=== PATIENT | female | born 1965 | race Caucasian/White ===

== ENCOUNTER 2017-10-15 04:44 | Emergency (ER) | payer MEDICAID, SELFPAY ==
[2017-10-15 04:50] VITALS: BP 122/80; PULSE 91; RESP 12; TEMP 36.6; O2SAT 97; BMI 19.8
--- NOTE | 2017-10-15 05:14 | HMH.EDWNDL ---
ED Disposition Clinical Impression: Laceration Disposition: Home, Self-Care Condition on Discharge: Good Instructions: DI for Laceration Repair Additional Instructions: suture out 10 days Referrals: Ang Brower MD [Primary Care Provider] - - Critical Care Critical Care Time: No Attestation: On 10/15/17, the high probability of a clinically significant, sudden or life threatening deterioration of the following system(s) required my full and direct attention, intervention and personal management. The time I documented below is in addition to time spent performing reported procedures but includes the following listed in this critical care notation. Medical Decision Making - Medical Records Medical records reviewed: Yes: I reviewed the patient's medical records. Vital Signs: 10/15/17 04:50 Temperature 97.9 F Temperature Source Oral Pulse Rate [Right Radial] 91 H Respiratory Rate 12 Blood Pressure [Right Arm] 122/80 Blood Pressure Mean [Right Arm] 94 Blood Pressure Source [Right Arm] Automatic Cuff Blood Pressure Position [Right Arm] Sitting 02 Sat by Pulse Oximetry 97 Oxygen Delivery Method Room Air - Jakub Inquiry Pt receiving controlled substance: No Wound/Laceration HPI - General Chief Complaint: Wound/Laceration Stated Complaint: AO 10/15/17 04:10 laceration to left hand Time Seen by Provider: 10/15/17 05:14 Mode of Arrival: Ambulatory Source of Information: Patient, Spouse, Medical Record Limitations: No Limitations Description of Symptoms (Recalled from ER Triage Doc. by RN): left hand laceration - History of Present Illness HPI narrative: lac lt hand at home with boxcutter Onset (ago): hour(s) Extremity Location: Left: hand Place: home Patient tetanus UTD: Yes Context: accidental Associated symptoms: none - Related Data Home Medications Medication Instructions Recorded Confirmed ALPRAZolam [Alprazolam 0.25mg 0.25 mg PO TID 10/15/17 10/15/17 Tab] Aspirin [Aspirin 81mg chewable 81 mg PO DAILY 10/15/17 10/15/17 tab] Atorvastatin Calcium [Atorvastatin 40 mg PO HS 10/15/17 10/15/17 40mg Tab] Budesonide/Formoterol Fumarate 1 inh INHALATION BID 10/15/17 10/15/17 [Symbicort 160-4.5 Mcg Inhaler] Clopidogrel Bisulfate [Plavix 75mg 1 tab PO DAILY 10/15/17 10/15/17 Tab] Meloxicam [Mobic 7.5mg Tab] 7.5 mg PO BID 10/15/17 10/15/17 Metoprolol Succinate [Toprol XL 25 mg PO DAILY 10/15/17 10/15/17 25mg tablet] Nitroglycerin [Nitroglycerin 4.9 gm TL Q5MINP PRN 10/15/17 10/15/17 0.4mg/Dose [place] 4.9gm] Allergies Allergy/AdvReac Type Severity Reaction Status Date / Time No Known Allergies Allergy Verified 10/15/17 04:59 [facility] History I have reviewed the patient's past medical history: Yes Medical History: Denies:: Cancer, Diabetes Mellitus Type 1, Diabetes Mellitus Type 2, MRSA Amputation: No Fractures: No - *Social History Educational Level: Completed GED/General Educational Development Smoking Status: Current every day smoker # Packs/Day (cigarettes): 1 Alcohol Intake: never - Psychiatric History Expresses thoughts of harming self/others: None Suicide Plan Description: No Plan ROS Obtained: Yes All systems reviewed & no additional complaints - Constitutional Constitutional: Denies fever(s) - Eyes Eyes: Denies change in vision - ENT Ears, Nose, Mouth, and Throat: Denies sore throat - Cardiovascular Cardiovascular: Denies chest pain at rest - Respiratory Respiratory: No chest congestion - Gastrointestinal Gastrointestingal: Denies: nausea - Musculoskeletal Musculoskeletal: Denies joint pain, Denies joint stiffness - Integumentary/Breasts Skin/Breast: Reports as per HPI - Neurologic Neurologic: Denies seizure-like activity Physical Exam - General General appearance: alert, in no apparent distress - Head Head exam: atraumatic - Eye Eye exam: Present: PERRL, EOMI - ENT ENT exam: Pres
[2017-10-15 05:46] VITALS: BP 138/64; PULSE 78; RESP 16; TEMP 36.9; O2SAT 98
== END 2017-10-15 05:46 | disposition home or self-care (01) ==
PROVIDERS: Emergency Provider Emergency Medicine; Family Provider Family Medicine; PCP Family Medicine
DX: S61.412A Laceration without foreign body of left hand, initial encounter (principal); W26.0XXA Contact with knife, initial encounter; Y92.019 Unspecified place in single-family (private) house as the place of occurrence of the external cause; Z79.899 Other long term (current) drug therapy; I10 Essential (primary) hypertension; Z79.82 Long term (current) use of aspirin; F17.210 Nicotine dependence, cigarettes, uncomplicated; I25.10 Atherosclerotic heart disease of native coronary artery without angina pectoris
CPT/HCPCS: 12001; 99282

== ENCOUNTER → 2019-06-17 09:59 | Outpatient (CLI) | payer MEDICAID, SELFPAY ==
--- NOTE | 2019-06-17 10:04 | US_ITS ---
PROCEDURE: US ABDOMEN LIMITED CLINICAL INDICATION: RUQ PAIN Right upper quadrant pain with nausea miles in the COMPARISON: CT ABDOMEN PELVIS WO CON from 06/13/2019 FINDINGS: PANCREAS: Unremarkable. No obvious mass or abnormal fluid collection. No ductal dilatation LIVER: No focal liver lesions demonstrated. Homogeneous echogenicity. No intrahepatic biliary ductal dilatation evident. There is appropriate direction of blood flow within a non dilated portal vein RIGHT KIDNEY: Unremarkable. Normal size and echogenicity. No hydronephrosis GALLBLADDER: Gallbladder is slightly distended measuring 9.7 by 2.7 cm. The wall is mildly thickened measuring up to 4 mm. No pericholecystic fluid is evident. No shadowing stones are apparent. There is a small echogenic focus along the anterior aspect of the gallbladder with comet tail artifact consistent with cholesterolosis. IMPRESSION: Mildly distended gallbladder with mild thickening of the gallbladder wall with cholesterolosis. No shadowing stones or pericholecystic fluid or biliary dilatation. Dictated by: Rod Garcia MD 06/17/2019 16:00 Electronically signed by Rod Garcia MD in [place] 06/17/2019 16:00
== END ==
PROVIDERS: PCP Family Medicine; Visit Provider Family Medicine
DX: R10.11 Right upper quadrant pain (principal)
CPT/HCPCS: 76705

== ENCOUNTER → 2019-07-12 11:33 | Outpatient (CLI) | payer OTHER, SELFPAY ==
--- NOTE | 2019-07-12 11:50 | ECG_ITS ---
APPROVED REPORT Exam: Resting ECG HR:72 bpm ECG Measurements Heart Rate 72 AXES NM 176 P 72 QRSd 68 QRS 72 QT 398 T 72 QTc 435 <Conclusion> Normal sinus rhythm Possible Left atrial enlargement Incomplete RBBB Borderline ECG Electronically signed by : Glen Gunter, 07/12/2019 17:14:01
--- NOTE | 2019-07-12 11:51 | XR_ITS ---
PROCEDURE: XR CHEST 2V CLINICAL HISTORY: gallstones COPD, smoker, history collapse lung COMPARISON: CXR CHEST(2 VIEWS-NOT PORTABLE) from 05/27/[address] [facility] [address] CHEST W/O CONTRAST from 05/27/2017 XR CHEST 2V from 06/13/2019 FINDINGS: The cardiomediastinal silhouette and pulmonary vascularity are within normal limits. Hyperinflation with attenuation of the peripheral pulmonary vessels consistent with COPD with biapical fibrotic change. Calcified granuloma is present in the lingula. No lobar consolidation or collapse. No acute bony findings. No acute bony abnormalities. IMPRESSION: COPD with chronic changes Dictated by: Rod Garcia MD 07/12/2019 13:07 Electronically signed by Rod Garcia MD in [place] 07/12/2019 13:07
[2019-07-12 12:03] LABS: Basophils % 0.6 % (0.1-2.0); Eosinophils # 0.2 K/mm3 (0.0-0.4); Eosinophils % 2.7 % (0.1-12.0); Hematocrit 45.3 % (37.0-47.0); Hemoglobin 13.4 g/dL (12.2-16.2); Lymphocytes # 2.2 K/mm3 (0.7-4.5); Lymphocytes % 34.7 % (10-50); Mean Corpuscular HGB Conc 29.6 g/dL (31.8-35.4); Mean Corpuscular Hemoglobin 28.8 pg (27.0-31.2); Mean Corpuscular Volume 97.2 fl (81-99); Mean Platelet Volume 7.8 fl (7.4-10.4); Monocytes # 0.4 K/mm3 (0.1-1.0); Monocytes % 6.9 % (1.7-9.3); Neutrophils # 3.5 K/mm3 (1.8-7.8); Neutrophils % 55.1 % (37.0-80.0); Platelet Count 320 K/mm3 (142-424); Red Blood Count 4.66 M/mm3 (4.20-5.40); White Blood Count 6.3 K/mm3 (4.8-10.8)
[2019-07-12 13:42] LABS: Alanine Aminotransferase 15 U/L (12-78); Albumin Level 3.9 gm/dL (3.4-5.0); Albumin/Globulin Ratio 1.2 (1.1-1.8); Alkaline Phosphatase 120 U/L (46-116); Anion Gap 13.6 mEq/L (5-15); Aspartate Amino Transferase 14 U/L (15-37); Bilirubin,Total 0.3 mg/dL (0.2-1.0); Blood Urea Nitrogen 13 mg/dL (7-18); Calcium 9.3 mg/dL (8.5-10.1); Carbon Dioxide 29 mmol/L (21.0-32.0); Chloride 102 mmol/L (98-107); Estimated Glomerular Filt Rate 74 ml/min (>60); GFR (African American) 90 ML/MIN (>60); Globulin 3.2 gm/dl (1.3-3.2); Glucose 83 mg/dL (74-106); Potassium 4.6 mmoL/L (3.5-5.1); Sodium 140 mmol/L (136-145); Total Protein,Serum 7.1 gm/dL (6.4-8.2)
== END ==
PROVIDERS: Visit Provider Surgery
DX: K82.9 Disease of gallbladder, unspecified (principal); Z12.11 Encounter for screening for malignant neoplasm of colon
CPT/HCPCS: 36415; 71046; 80053; 85025; 93005

== ENCOUNTER → 2019-08-06 11:10 | Outpatient (CLI) | payer OTHER, SELFPAY ==
--- NOTE | 2019-08-06 11:28 | CT_ITS ---
PROCEDURE: CT ABDOMEN PELVIS W CON CLINICAL INDICATION: post surgical abdominal pain Mid epigastric pain, recent gallbladder surgery COMPARISON: CT ABDOMEN PELVIS WO CON from 06/13/2019 US ABDOMEN LIMITED from 06/17/2019 TECHNIQUE: IV Contrast: 75ML OPTIRAY 350 Oral Contrast 20ml Gastroview Axial images obtained with sagittal and coronal reformats. All CT scans at the facility use one or more dose reduction, viz: automated exposure control, ma/kV adjustment per patient size (including targeted exams where dose is matched to indication, i.e. head), or iterative reconstruction technique. FINDINGS: LOWER THORAX: No change in the bilateral lower lobe small pulmonary nodules. There are mild atelectatic changes in the lung bases. There is minimal thickening of the pericardium anteriorly There are post cholecystectomy changes. The there is mild prominence of the common bile duct and the pancreatic duct with the common bile duct measuring approximately 8 mm in diameter. The pancreatic duct measures up to 4 mm. No obvious calcified common duct stone. There is a prominent duodenal diverticulum along the medial aspect of the descending duodenum. No evidence of pancreatitis. There is mild ectasia of the right renal collecting system. The left kidney has an unremarkable appearance. There is a mild amount of retained colonic feces. No intestinal obstruction or free air. No evidence of appendicitis there is mild distention of the urinary bladder. Uterus once again is noted to have a lobular contour and may be due to fibroid involvement. Increased density is present in the umbilical region and may be due to postsurgical changes. IMPRESSION: 1. Status post cholecystectomy. There is mild prominence of the biliary tree not significantly changed. There is minimal prominence of the pancreatic duct which is probably not significantly changed. No evidence of abscess or biloma. 2. There is a mild amount of retained colonic feces. 3. Duodenal diverticulum. 4. Probable fibroid involvement of the uterus Dictated by: Rod Garcia MD 08/06/2019 14:57 Electronically signed by Rod Garcia MD in [place] 08/06/2019 14:57
[2019-08-06 11:29] LABS: Basophils # 0.1 K/mm3 (0-0.2); Basophils % 0.5 % (0.1-2.0); Eosinophils # 0.3 K/mm3 (0.0-0.4); Eosinophils % 2.7 % (0.1-12.0); Hematocrit 44.2 % (37.0-47.0); Hemoglobin 14.3 g/dL (12.2-16.2); Lymphocytes # 2.4 K/mm3 (0.7-4.5); Lymphocytes % 24.9 % (10-50); Mean Corpuscular HGB Conc 32.4 g/dL (31.8-35.4); Mean Corpuscular Hemoglobin 30.9 pg (27.0-31.2); Mean Corpuscular Volume 95.3 fl (81-99); Mean Platelet Volume 7.3 fl (7.4-10.4); Monocytes # 0.3 K/mm3 (0.1-1.0); Monocytes % 3.1 % (1.7-9.3); Neutrophils # 6.7 K/mm3 (1.8-7.8); Platelet Count 288 K/mm3 (142-424); Red Blood Count 4.64 M/mm3 (4.20-5.40); Red Cell Distribution Width 13.2 % (11.5-17.5); White Blood Count 9.7 K/mm3 (4.8-10.8)
[2019-08-06 11:42] LABS: Amylase 53 U/L (25-115); Anion Gap 7.1 mEq/L (5-15); Blood Urea Nitrogen 16 mg/dL (7-18); Calcium 8.9 mg/dL (8.5-10.1); Carbon Dioxide 33 mmol/L (21.0-32.0); Chloride 106 mmol/L (98-107); Estimated Glomerular Filt Rate 74 ml/min (>60); GFR (African American) 90 ML/MIN (>60); Glucose 86 mg/dL (74-106); Lipase 176 u/L (73-393); Potassium 4.1 mmoL/L (3.5-5.1); Sodium 142 mmol/L (136-145)
== END ==
PROVIDERS: Visit Provider Surgery
DX: K81.9 Cholecystitis, unspecified (principal); K85.90 Acute pancreatitis without necrosis or infection, unspecified; G89.18 Other acute postprocedural pain
CPT/HCPCS: 36415; 74177; 80048; 82150; 83690; 85025; Q9967

== ENCOUNTER 2019-11-26 06:16 | Inpatient (IN) ==
--- NOTE | 2019-11-26 06:31 | Emergency Department Note ---
ED Disposition Clinical Impression: Colitis, VARINDER (acute kidney injury), SIRS (systemic inflammatory response syndrome) Disposition: Admitted as Observation Condition on Discharge: Good Instructions: DI for Diarrhea and Traveler's Diarrhea -- Adult, DI for Diarrhea and Traveler's Diarrhea -- Child, DI for Nausea -- Adult, DI for Nausea -- Child Referrals: Provider,Referral, [Referring] - - Critical Care Critical Care Time: No Attestation: On 11/26/19, the high probability of a clinically significant, sudden or life threatening deterioration of the following system(s) required my full and direct attention, intervention and personal management. The time I documented below is in addition to time spent performing reported procedures but includes the following listed in this critical care notation. Medical Decision Making - Medical Records Medical records reviewed: Yes: I reviewed the patient's medical records. - Jakub Inquiry Pt receiving controlled substance: No Vital Signs: 11/26/19 06:14 11/26/19 08:50 Temperature 98.0 F Temperature Source Oral Pulse Rate [Left Radial] 90 101 H Respiratory Rate 16 Blood Pressure [Right Arm] 144/78 H 124/67 Blood Pressure Mean [Right Arm] 100 86 Blood Pressure Source [Right Arm] Automatic Cuff Blood Pressure Position [Right Arm] Sitting 02 Sat by Pulse Oximetry 97 94 L Oxygen Delivery Method Room Air - Lab Data Lab results reviewed: Yes: I reviewed the patient's lab results. Lab Results 11/26/19 06:20: WBC 18.6 H, RBC 5.04, Hgb 15.1, Hct 47.6 H, MCV 94.4, MCH 29.9, MCHC 31.7 L, RDW 13.4, Plt Count 335, MPV 7.6, Neut % (Auto) 86.1 H, Lymph % (Auto) 8.3 L, [place] % (Auto) 5.1, Eos % (Auto) 0.3, Baso % (Auto) 0.2, Neut # (Auto) 16.0 H, Lymph # (Auto) 1.5, [place] # (Auto) 1.0, Eos # (Auto) 0.1, Baso # (Auto) 0.0, Total Counted 100, Neutrophils % (Manual) 88 H, Lymphocytes % (Manual) 6 L, Monocytes % (Manual) 6, Platelet Estimate Slight increase, RBC Morphology Normal 11/26/19 06:20: Sodium 140, Potassium 4.2, Chloride 104, Carbon Dioxide 29, Anion Gap 11.2, BUN 25 H, Creatinine 1.20 H, Estimated Creat Clear 45, Estimated GFR 46 L, Est GFR ( Amer) 56 L, Glucose 153 H, Calcium 10.5 H, Lipase 64, Acetone Level None detected 11/26/19 06:20: Lactate 1.5 11/26/19 06:20: Influenza Type A Ag Negative, Influenza Type B Ag Negative 11/26/19 06:20: Total Bilirubin 0.5, Direct Bilirubin 0.0, Conjugated Bilirubin 0.0, Indirect Bilirubin 0.5, Unconjugated Bilirubin 0.6, AST 32, ALT 20, Alkaline Phosphatase 121, Total Protein 7.4, Albumin 4.3 11/26/19 06:28: Urine Color Yellow, Urine Appearance Clear, Urine pH 6.5, Ur Specific [place] 1.015, Urine Protein Trace, Urine Glucose (UA) Negative, Urine Ketones Negative, Urine Blood Trace-i, Urine Nitrate Negative, Urine Bilirubin Negative, Urine Urobilinogen 0.2, Ur Leukocyte Esterase Negative, Urine RBC Occasional, Urine WBC Occasional, Ur Squamous Epith Cells Occasional, Urine Bacteria Trace Result diagrams: 11/26/19 06:20 11/26/19 06:20 Orders (Tests/Meds): ED MEDICATIONS Generic Name Dose Route Start Last Admin Trade Name Freq PRN Reason Stop Dose Admin Levofloxacin/Dextrose 750 mg in 150 mls @ 100 mls/hr 11/26/19 09:00 Levofloxacin 750mg/150ml Premix IV 12/10/19 08:59 Q24H MARITA Protocol Metronidazole 500 mg in 100 mls @ 100 mls/hr 11/26/19 09:00 Flagyl 500mg/100ml Ivpb IV 12/10/19 08:59 Q6H MARITA Protocol Discontinued Medications Generic Name Dose Route Start Last Admin Trade Name Freq PRN Reason Stop Dose Admin Sodium Chloride 1,000 mls @ 999 mls/hr 11/26/19 06:30 11/26/19 06:31 Sod Chlor 0.9% 1000ml Bag IV 11/26/19 07:30 999 mls/hr .Q1H1M MARITA Administration Ioversol 75 ml 11/26/19 07:46 11/26/19 07:47 Rad-Optiray 350 100ml Vial IV 11/26/19 07:47 75 ml ONCE ONE Administration Protocol Morphine Sulfate 2 mg 11/26/19 08:55 Morphine 2mg/Ml Syringe IV 11/26/19 08:56 ONCE ONE Ondansetron HCl 4 mg 11/26/19 06:23 11/26/19 06:31 Zofran 4mg/2ml Vial IV 11/26/19 06:24 4 mg ONCE ONE Administration Sodium Chloride 10 ml 11/26/19 07:46 11/26/19 07:47 Rad-Saline Flush 10ml Syringe IV 11/26/19 07:47 10 ml ONCE ONE Administration ORDERS Category Date Time Status CT abdomen pelvis w con Stat Cat Scan 11/26/19 06:21 Taken Diarrhea 6-11 Panel, Cdiff PCR Stat Lab 11/26/19 07:54 Received Blood Culture Stat Micro 11/26/19 06:20 Received - CT Data CT Scan: Abdomen, Pelvis Time Received: 08:[address] Reviewed: Yes: I have viewed the radiologist's interpretation Preliminary Findings: Abnormal (colitis) - Physician Consults Physician Consulted: percy Reason -: Admission Nausea/Vomiting/Diarrhea HPI - General Chief complaint: Nausea/Vomiting/Diarrhea Stated complaint: nausea, vomiting, diarrhea Time Seen by Provider: 11/26/19 06:30 Mode of Arrival: EMS Source of Information: Patient, EMS, Medical Record Limitations: No Limitations Description of Symptoms (Recalled from ER Triage Doc. by RN): pt stated she had been experiencing abdominal cramping along with nausea, vomiting and diarrhea since 10pm last night. - History of Present Illness HPI Narrative: pt reports onset od lower abd pain with assoc diarrhea and some blood in stool - nausea and no vomiting - MD complaint: nausea, vomiting, diarrhea, abdominal pain Onset (ago): hour(s) Associated Abdominal Pain: Yes Location of pain: diffuse Severity: moderate Associated symptoms: denies other symptoms - Related Data Home Medications Medication Instructions Recorded Confirmed ALPRAZolam [Alprazolam 0.25mg 0.25 mg PO TID 10/15/17 11/26/19 Tab] Aspirin [Aspirin 81mg chewable 81 mg PO DAILY 10/15/17 11/26/19 tab] Atorvastatin Calcium [Atorvastatin 40 mg PO HS 10/15/17 11/26/19 40mg Tab] Budesonide/Formoterol Fumarate 1 inh INHALATION BID 10/15/17 11/26/19 [Symbicort 160-4.5 Mcg Inhaler] Clopidogrel Bisulfate [Plavix 75mg 1 tab PO DAILY 10/15/17 11/26/19 Tab] Meloxicam [Mobic 7.5mg Tab] 7.5 mg PO BID 10/15/17 11/26/19 Metoprolol Succinate [Toprol XL 25 mg PO DAILY 10/15/17 11/26/19 25mg tablet] Nitroglycerin [Nitroglycerin 4.9 gm TRANSLINGUAL Q5MINP PRN 10/15/17 11/26/19 0.4mg/Dose [place] 4.9gm] Amitriptyline HCl [Elavil 25mg 25 mg PO DAILY 07/14/19 11/26/19 tablet] Allergies Allergy/AdvReac Type Severity Reaction Status Date / Time No Known Allergies Allergy Verified 09/03/19 10:00 [facility] History - Hepatitis A Screen Drug use history?: No High risk sexual behaviors?: No History of sexually transmitted infection?: No Currently employed?: No Childcare worker?: No Do you have indoor plumbing?: Yes Do you have electricity?: Yes Attestation statement:: This patient has been screened for Hepatitis A risk factors. I have reviewed the patient's past medical history: Yes Medical History: Reports:: Anxiety, Hyperlipidemia, Hypertension Denies:: Cancer, Diabetes Mellitus Type 1, Diabetes Mellitus Type 2, Internal Pacemaker, MRSA, Seizures Other Medical History: Denies: Blood Transfusion Reaction Other Surgeries: Yes: Cholecystectomy, Colonoscopy, Other. No: Pacemaker Amputation: No Fractures: No Comment: pneumothorax - Social History Smoking Status: Current every day smoker Tobacco Type: cigarettes # Packs/Day (cigarettes): 1 Alcohol Intake: never Substance Use Type: denies use Occupational Status: disabled Housing: house Household Members: spouse - Psychiatric History Pschychiatric History:: Reports:: Anxiety Family Hx:: No significant family history ROS Obtained: Yes All systems reviewed & no additional complaints - Constitutional Constitutional: Denies fever(s) - Eyes Eyes: Denies change in vision - ENT Ears, Nose, Mouth, and Throat: Denies sore throat - Cardiovascular Cardiovascular: Denies chest pain, Denies dyspnea - Respiratory Respiratory: No cough - Gastrointestinal Gastrointestingal: Reports: as per HPI, abdominal pain, diarrhea, bright red blood in stools, nausea, vomiting - Genitourinary Male Genitourinary: Reports hematuria Female Genitourinary: Denies hematuria - Musculoskeletal Musculoskeletal: Denies joint pain - Integumentary/Breasts Skin/Breast: Denies rash - Neurologic Neurologic: Denies seizure-like activity Physical Exam - General General appearance: alert - Head Head exam: normocephalic - Eye Eye exam: Present: PERRL, EOMI. Absent: scleral icterus - ENT ENT exam: Present: mucous membranes dry - Neck Neck exam: Present: trachea midline - Respiratory Respiratory exam: Present: normal lung sounds bilaterally. Absent: respiratory distress - Cardiovascular Cardiovascular exam: Present: regular rate - Abdominal Exam Abdominal exam: Present: soft, tenderness. Absent: guarding - Extremities Exam Extremities exam: Present: full ROM - Neurological Exam Neurological exam: Present: alert, oriented X3, CN II-XII intact - Psychiatric Psychiatric exam: Present: normal affect - Skin Skin exam: Absent: rash
[2019-11-26 06:39] LABS: Basophils % 0.2 % (0.1-2.0); Eosinophils # 0.1 K/mm3 (0.0-0.4); Eosinophils % 0.3 % (0.1-12.0); Hematocrit 47.6 % (37.0-47.0); Hemoglobin 15.1 g/dL (12.2-16.2); Lymphocytes # 1.5 K/mm3 (0.7-4.5); Lymphocytes % 8.3 % (10-50); Mean Corpuscular HGB Conc 31.7 g/dL (31.8-35.4); Mean Corpuscular Volume 94.4 fl (81-99); Mean Platelet Volume 7.6 fl (7.4-10.4); Monocytes % 5.1 % (1.7-9.3); Neutrophils % 86.1 % (37.0-80.0); Platelet Count 335 K/mm3 (142-424); Red Blood Count 5.04 M/mm3 (4.20-5.40); Red Cell Distribution Width 13.4 % (11.5-17.5); White Blood Count 18.6 K/mm3 (4.8-10.8)
[2019-11-26 06:48] LABS: Chloride 104 mmol/L (98-107)
[2019-11-26 06:49] LABS: Sodium 140 mmol/L (136-145)
[2019-11-26 06:51] LABS: Blood Urea Nitrogen 25 mg/dl (7-17)
[2019-11-26 06:52] LABS: Anion Gap 11.2 mEq/L (5-15); Calcium 10.5 mg/dl (8.4-10.2); Carbon Dioxide 29 mmol/L (22.0-30.0); Glucose 153 mg/dl (74-100)
[2019-11-26 06:53] LABS: Microscopic, Urine URINE MICROSCOPIC (MICROSCOPIC)
[2019-11-26 06:59] LABS: Appearance,Urine CLEAR (Clear); Bilirubin,Urine Negative (Negative); Blood, Urine TRACE-I (Negative); Color,Urine YELLOW (Yellow); Glucose,Urine (UA) Negative (Negative); Ketones,Urine Negative (Negative); Leukocyte Esterase,Urine Negative (Negative); PH,Urine 6.5 (5.0-8.5); Protein,Urine TRACE (Negative); Specific Gravity, Urine 1.015 (1.005-1.030); Urobilinogen,Urine 0.2 EU/dl (0.2)
[2019-11-26 07:07] LABS: Lymphocytes % 6 % (10-50); Monocytes % 6 % (2-9); Neutrophils % 88 % (42-76); Total Cells Counted 100
[2019-11-26 07:08] LABS: RBC Morphology Normal
[2019-11-26 07:16] LABS: Bacteria,Urine Trace /lpf; RBC,Urine Occasional #/hpf (0-3); Squamous Epithelial Cell,Urine Occasional #/hpf (0-5); WBC,Urine Occasional #/hpf (0-3)
[2019-11-26 07:20] LABS: Acetone, Serum (Rapid) None Detected (None Detect); Bilirubin,Indirect 0.5 mg/dL (0.0-0.9); Bilirubin,Total 0.5 mg/dl (0.2-1.3); Bilirubin,Unconjugated 0.6 mg/dL (0.0-1.1)
[2019-11-26 07:21] LABS: Albumin Level 4.3 g/dl (3.5-5.0); Total Protein,Serum 7.4 g/dl (6.3-8.2)
--- NOTE | 2019-11-26 09:00 | Pharmacy Consult Notes ---
[facility] Pharmacy VTE Monitoring - Patient Demographics Admission date: 11/26/19 Report Date: 11/26/19 Time: 09:00 Allergies/Adverse Reactions: Patient Allergies No Known Allergies Allergy (Verified 09/03/19 10:00) Height: 1.73 m Weight: 54.431 kg Patient Problems: Current Active Problems Colitis (Acute) VARINDER (acute kidney injury) (Acute) SIRS (systemic inflammatory response syndrome) (Acute) - VTE Risk Labs: VTE Related Lab Results Hgb 15.1 g/dL (12.2-16.2) 11/26/19 06:20 Hct 47.6 % (37.0-47.0) H 11/26/19 06:20 Plt Count 335 K/mm3 (142-424) 11/26/19 06:20 BUN 25 mg/dl (7-17) H 11/26/19 06:20 Creatinine 1.20 mg/dl (0.52-1.04) H 11/26/19 06:20 Estimated Creat Clear 45 mL/min (50-200) 11/26/19 06:20 - Prophylaxis VTE Prophylaxis Ordered?: Yes Types of VTE Prophylaxis: TEDS Knee High Location of Applied Device: Bilateral Lower Extremeties - VTE Diagnosis Confirmed Treatment or plan recommended: Continue Current Treatment
--- NOTE | 2019-11-26 16:24 | History & Physical Report ---
*Admission Date: 11/26/19 <Romy Huffman 11/26/19 16:31> *Chief complaint: vomiting/diarrhea <Romy Huffman 11/26/19 16:31> *History of present illness: Ms. Kirkland is a 54-year-old female with a history of asthma, COPD, hyperlipidemia, and arthritis who began having abdominal c ramping in the lower abdomen, diarrhea, and vomiting last night around 10 PM. She states this continued all throughout the night and around 4 AM, she began noticing blood in her stool. She presented to the emergency room for further evaluation and treatment. A diarrhea panel was done and was negative, but her CT showed colitis and her white blood cell count was elevated. She was admitted and started on IV antibiotics. She states she has had no vomiting or diarrhea since she arrived on the second floor. She continues with abdominal cramping. <Romy Huffman 11/26/19 16:31> [facility] History I have reviewed the patient's past medical history: Yes <Romy Huffman 11/26/19 16:31> Medical History: Reports:: Anxiety, Arrhythmia, Asthma, Chronic Obstructive Pulmonary Disease (COPD), Coronary Artery Disease, Hyperlipidemia, Hypertension Denies:: Cancer, Diabetes Mellitus Type 1, Diabetes Mellitus Type 2, Internal Pacemaker, MRSA, Seizures <Romy Huffman 11/26/19 16:31> *Have you ever received a pneumonia vaccine?: No <Romy Huffman 11/26/19 16:31> *Have you received a flu vaccine this season?: No <Romy Huffman 11/26/19 16:31> Other Medical History: Reports: Arthritis, Cataracts. Denies: Blood Transfusion Reaction <Romy Huffman 11/26/19 16:31> Other Surgeries: Yes: Cardiac Catheterization, Cholecystectomy, Colonoscopy, Other (angiogram). No: Pacemaker <Romy Huffman 11/26/19 16:31> Amputation: No <Romy Huffman 11/26/19 16:31> Fractures: No <Romy Huffman 11/26/19 16:31> - *Social History Educational Level: Completed GED/General Educational Development <Romy Huffman 11/26/19 16:31> Smoking Status: Current every day smoker <Romy Huffman 11/26/19 16:31> Tobacco Type: cigarettes <ArmidaRomy 11/26/19 16:31> # Packs/Day (cigarettes): 1 <ArmidaRomy 11/26/19 16:31> Alcohol Intake: never <ArmidaRomy 11/26/19 16:31> Substance Use Type: denies use <ArmidaRomy 11/26/19 16:31> *Occupational Status:: employed <Romy Huffman 11/26/19 16:31> Housing: house <KaianaliRomy 11/26/19 16:31> Household Members: spouse <ArmidaRomy 11/26/19 16:31> *Travel in the last 8 weeks: None <Romy Huffman 11/26/19 16:31> - Psychiatric History Pschychiatric History:: Reports:: Anxiety <ArmidaRomy 11/26/19 16:31> Family Hx:: Cancer, Coronary Artery Disease, Heart Attack, Hyperlipidemia, Hypertension, Stroke <Bryce Huffmana 11/26/19 16:31> Review of Systems - Constitutional Reports chills, Reports weakness, Denies fever(s) <Bryce Huffmana 11/26/19 16:31> - Eyes Denies blurry vision, Denies double vision <ArmidaRomy 11/26/19 16:31> - ENT Reports nasal congestion, Denies sore throat <Bryce Huffmana 11/26/19 16:31> - *Cardiovascular Denies chest pain, Denies shortness of breath <Bryce Huffmana 11/26/19 16:31> - *Respiratory Denies cough, Denies shortness of breath <ArmidaRomy 11/26/19 16:31> - *Gastrointestinal Reports abdominal pain (lower abdomen), Reports loose stools, Reports bright, red blood in stools, Reports nausea, Reports vomiting <Bryce Huffmana 11/26/19 16:31> - *Genitourinary Denies difficulty urinating, Denies painful urination <Romy Huffman 11/26/19 16:31> - *Musculoskeletal Denies joint pain <Bryce Huffmana 11/26/19 16:31> - *Neurologic Reports dizziness, Reports weakness, Denies headache(s), Denies seizure-like activity <Romy Huffman - 11/26/19 16:31> Meds Home Medications Medication Instructions Recorded Confirmed Type Aspirin [Aspirin 81mg chewable 81 mg PO DAILY 10/15/17 11/26/19 History tab] Atorvastatin Calcium [Atorvastatin 40 mg PO HS 10/15/17 11/26/19 History 40mg Tab] Budesonide/Formoterol Fumarate 1 inh INHALATION BID 10/15/17 11/26/19 History [Symbicort 160-4.5 Mcg Inhaler] Clopidogrel Bisulfate [Plavix 75mg 75 mg PO DAILY 10/15/17 11/26/19 History Tab] Metoprolol Succinate [Toprol XL 25 mg PO DAILY 10/15/17 11/26/19 History 25mg tablet] Nitroglycerin [Nitroglycerin 1 spr TRANSLINGUAL Q5MINP PRN 10/15/17 11/26/19 History 0.4mg/Dose [place] 4.9gm] Amitriptyline HCl [Elavil 25mg 25 - 50 mg PO HS 07/14/19 11/26/19 History tablet] ALPRAZolam [Xanax 0.5mg tab] 0.5 mg PO TIDP PRN 11/26/19 11/26/19 History Albuterol Sulfate [Albuterol HFA 2 puffs IH Q6H 11/26/19 11/26/19 History Inhaler] Isosorbide Mononitrate [Imdur 30mg 30 mg PO DAILY 11/26/19 11/26/19 History ER tablet] Meloxicam 15 mg PO DAILY 11/26/19 11/26/19 History <Ang Brower - 11/26/19 17:21> Allergies Allergy/AdvReac Type Severity Reaction Status Date / Time No Known Allergies Allergy Verified 09/03/19 10:00 <Ang Brower - 11/26/19 17:21> Exam Vital signs and Labs for Last 24 Hours: Temp Pulse Resp BP Pulse Ox 99.1 F 96 H 20 119/80 98 11/26/19 15:33 11/26/19 15:33 11/26/19 15:33 11/26/19 15:33 11/26/19 15:33 Laboratory Results - last 24 hr 11/26/19 06:20: WBC 18.6 H, RBC 5.04, Hgb 15.1, Hct 47.6 H, MCV 94.4, MCH 29.9, MCHC 31.7 L, RDW 13.4, Plt Count 335, MPV 7.6, Neut % (Auto) 86.1 H, Lymph % (Auto) 8.3 L, [place] % (Auto) 5.1, Eos % (Auto) 0.3, Baso % (Auto) 0.2, Neut # (Auto) 16.0 H, Lymph # (Auto) 1.5, [place] # (Auto) 1.0, Eos # (Auto) 0.1, Baso # (Auto) 0.0, Total Counted 100, Neutrophils % (Manual) 88 H, Lymphocytes % (Manual) 6 L, Monocytes % (Manual) 6, Platelet Estimate Slight increase, RBC Morphology Normal 11/26/19 06:20: Sodium 140, Potassium 4.2, Chloride 104, Carbon Dioxide 29, Anion Gap 11.2, BUN 25 H, Creatinine 1.20 H, Estimated Creat Clear 45, Estimated GFR 46 L, Est GFR ( Amer) 56 L, Glucose 153 H, Calcium 10.5 H, Lipase 64, Acetone Level None detected 11/26/19 06:20: Lactate 1.5 11/26/19 06:20: Influenza Type A Ag Negative, Influenza Type B Ag Negative 11/26/19 06:20: Total Bilirubin 0.5, Direct Bilirubin 0.0, Conjugated Bilirubin 0.0, Indirect Bilirubin 0.5, Unconjugated Bilirubin 0.6, AST 32, ALT 20, Alkaline Phosphatase 121, Total Protein 7.4, Albumin 4.3 11/26/19 06:28: Urine Color Yellow, Urine Appearance Clear, Urine pH 6.5, Ur Specific [place] 1.015, Urine Protein Trace, Urine Glucose (UA) Negative, Urine Ketones Negative, Urine Blood Trace-i, Urine Nitrate Negative, Urine Bilirubin Negative, Urine Urobilinogen 0.2, Ur Leukocyte Esterase Negative, Urine RBC Occasional, Urine WBC Occasional, Ur Squamous Epith Cells Occasional, Urine Bacteria Trace 11/26/19 07:54: Stl Aeromonas (PCR) Not detected, Stl C. cayetanensis PCR Not detected, Stool Rotavirus (PCR) Not detected, Stl Adenov F 40/41 PCR Not detected, Stool Astrovirus (PCR) Not detected, Stool Campylobacter PCR Not detected, Stl C.difficile Tox PCR Not detected, Stool Cryptosporidium PCR Not detected, Stl E.coli Shiga Tox PCR Not detected, Stool E coli O157 PCR Not detected, Stl Enterotoxigenic E PCR Not detected, Stool EPEC (PCR) Not detected, Stool EAEC (PCR) Not detected, Stl E. histolytica PCR Not detected, Stool Giardia Lamblia PCR Not detected, Stool Salmonella PCR Not detected, Stool Sapovirus (PCR) Not detected, Stl P. shigelloides PCR Not detected, Stl Shigella/EIEC PCR Not detected, St Y.enterocolitica PCR Not detected, Stool Vibrio (PCR) Not detected, Stl Vibrio cholerae PCR Not detected, Stl Norovirus GI/GII PCR Not detected <Ang Brower - 11/26/19 17:21> Temp Pulse Resp BP Pulse Ox 99.1 F 96 H 20 119/80 98 11/26/19 15:33 11/26/19 15:33 11/26/19 15:33 11/26/19 15:33 11/26/19 15:33 Laboratory Results - last 24 hr 11/26/19 06:20: WBC 18.6 H, RBC 5.04, Hgb 15.1, Hct 47.6 H, MCV 94.4, MCH 29.9, MCHC 31.7 L, RDW 13.4, Plt Count 335, MPV 7.6, Neut % (Auto) 86.1 H, Lymph % (Auto) 8.3 L, [place] % (Auto) 5.1, Eos % (Auto) 0.3, Baso % (Auto) 0.2, Neut # (Auto) 16.0 H, Lymph # (Auto) 1.5, [place] # (Auto) 1.0, Eos # (Auto) 0.1, Baso # (Auto) 0.0, Total Counted 100, Neutrophils % (Manual) 88 H, Lymphocytes % (Manual) 6 L, Monocytes % (Manual) 6, Platelet Estimate Slight increase, RBC Morphology Normal 11/26/19 06:20: Sodium 140, Potassium 4.2, Chloride 104, Carbon Dioxide 29, Anion Gap 11.2, BUN 25 H, Creatinine 1.20 H, Estimated Creat Clear 45, Estimated GFR 46 L, Est GFR ( Amer) 56 L, Glucose 153 H, Calcium 10.5 H, Lipase 64, Acetone Level None detected 11/26/19 06:20: Lactate 1.5 11/26/19 06:20: Influenza Type A Ag Negative, Influenza Type B Ag Negative 11/26/19 06:20: Total Bilirubin 0.5, Direct Bilirubin 0.0, Conjugated Bilirubin 0.0, Indirect Bilirubin 0.5, Unconjugated Bilirubin 0.6, AST 32, ALT 20, Alkaline Phosphatase 121, Total Protein 7.4, Albumin 4.3 11/26/19 06:28: Urine Color Yellow, Urine Appearance Clear, Urine pH 6.5, Ur Specific [place] 1.015, Urine Protein Trace, Urine Glucose (UA) Negative, Urine Ketones Negative, Urine Blood Trace-i, Urine Nitrate Negative, Urine Bilirubin Negative, Urine Urobilinogen 0.2, Ur Leukocyte Esterase Negative, Urine RBC Occasional, Urine WBC Occasional, Ur Squamous Epith Cells Occasional, Urine Bacteria Trace 11/26/19 07:54: Stl Aeromonas (PCR) Not detected, Stl C. cayetanensis PCR Not detected, Stool Rotavirus (PCR) Not detected, Stl Adenov F 40/41 PCR Not detected, Stool Astrovirus (PCR) Not detected, Stool Campylobacter PCR Not detected, Stl C.difficile Tox PCR Not detected, Stool Cryptosporidium PCR Not detected, Stl E.coli Shiga Tox PCR Not detected, Stool E coli O157 PCR Not detected, Stl Enterotoxigenic E PCR Not detected, Stool EPEC (PCR) Not detected, Stool EAEC (PCR) Not detected, Stl E. histolytica PCR Not detected, Stool Giardia Lamblia PCR Not detected, Stool Salmonella PCR Not detected, Stool Sapovirus (PCR) Not detected, Stl P. shigelloides PCR Not detected, Stl Shigella /EIEC PCR Not detected, St Y.enterocolitica PCR Not detected, Stool Vibrio (PCR) Not detected, Stl Vibrio cholerae PCR Not detected, Stl Norovirus GI/GII PCR Not detected <Romy Huffman - 11/26/19 16:31> I & O for Last 24 hours: Intake & Output 11/24/19 11/25/19 11/26/19 11/27/19 11:59 11:59 11:59 11:59 Intake Total 100 / 100 Balance 100 / 100 Weight 121 lb 6 oz <Ang Brower - 11/26/19 17:21> Intake & Output 11/24/19 11/25/19 11/26/19 11/27/19 11:59 11:59 11:59 11:59 Weight 121 lb 6 oz <Romy Huffman 11/26/19 16:31> - Constitutional Comments: Does not appear to feel well <Romy Huffman 11/26/19 16:31> - *Routine HEENT Exam Head: Present: normocephalic <Romy Huffman 11/26/19 16:31> Eye: Present: EOMI, PERRL <Romy Huffman 11/26/19 16:31> ENT: Present: mucous membranes dry <KaianaliRomy 11/26/19 16:31> - *Routine Neck Exam Present: supple. Absent: lymphadenopathy <Romy Huffman 11/26/19 16:31> - *Routine Respiratory Exam Present: CTA bilaterally <Romy Huffman 11/26/19 16:31> - *Routine Cardiovascular Exam Present: RRR [facility]/26/[facility] 16:31> - *Routine Abdominal Exam Present: soft, normoactive bowel sounds, tenderness (bilateral lower quadrants). Absent: rebound, guarding <ArmidaRomy 11/26/19 16:31> - *Routine Extremities Exam Absent: cyanosis, clubbing, edema <Romy Huffman 11/26/19 16:31> - *Routine Skin Exam Present: warm. Absent: rash <Romy Huffman 11/26/19 16:31> - *Routine Neurological Exam Present: alert, oriented X3 <KaianaliRomy 11/26/19 16:31> H&P: Result - Impressions Abdominal CT 1. Colitis 2. Lobular enlargement of the right aspect of the uterus suspicious for fibroid involvement. <ArmidaRomy 11/26/19 16:31> Assessment and Plan (1) Colitis Current visit: Yes Status: Acute Category: Medical Code(s): K52.9 - Noninfective gastroenteritis and colitis, unspecified (2) Dehydration Current visit: Yes Status: Acute Category: Medical Code(s): E86.0 - Dehydration (3) Leukocytosis Current visit: Yes Status: Acute Category: Medical Code(s): D72.829 - Elevated white blood cell count, unspecified (4) SIRS (systemic inflammatory response syndrome) Current visit: Yes Status: Acute Category: Medical Code(s): R65.10 - Systemic inflammatory response syndrome (SIRS) of non-infectious origin without acute organ dysfunction <Romy Huffman - 11/26/19 16:21> (1) Colitis Current visit: Yes Status: Acute Category: Medical Code(s): K52.9 - Noninfective gastroenteritis and colitis, unspecified (2) Dehydration Current visit: Yes Status: Acute Category: Medical Code(s): E86.0 - Dehydration (3) Leukocytosis Current visit: Yes Status: Acute Category: Medical Code(s): D72.829 - Elevated white blood cell count, unspecified (4) SIRS (systemic inflammatory response syndrome) Current visit: Yes Status: Acute Category: Medical Code(s): R65.10 - Systemic inflammatory response syndrome (SIRS) of non-infectious origin without acute organ dysfunction <Ang Brower - 11/26/19 17:21> - Assessment and plan all Dx Assessment and Plan for all problems:: Patient seen and examined. Concur with above assessment and plan. At this point her colitis is presumed infectious although etiology has not been identified. Subjectively she feels a little better. Nausea and vomiting have s ubsided. Still has a fair amount of low abdominal cramping. No fever. We will continue with bowel rest, IV fluids and IV antibiotics. <Ang Brower - 11/26/19 17:21> Patient has been started on Flagyl and Levaquin as well as pain control, antiemetics, and IV fluids. <Romy Huffman - 11/26/19 16:31>
[2019-11-27 07:05] LABS: Basophils % 0.2 % (0.1-2.0); Eosinophils % 0.2 % (0.1-12.0); Hematocrit 39.1 % (37.0-47.0); Hemoglobin 12.6 g/dL (12.2-16.2); Lymphocytes # 1.8 K/mm3 (0.7-4.5); Lymphocytes % 11.6 % (10-50); Mean Corpuscular HGB Conc 32.1 g/dL (31.8-35.4); Mean Corpuscular Volume 91.8 fl (81-99); Mean Platelet Volume 7.7 fl (7.4-10.4); Monocytes # 0.8 K/mm3 (0.1-1.0); Neutrophils # 13.2 K/mm3 (1.8-7.8); Neutrophils % 83.1 % (37.0-80.0); Platelet Count 279 K/mm3 (142-424); Red Blood Count 4.26 M/mm3 (4.20-5.40); Red Cell Distribution Width 13.3 % (11.5-17.5); White Blood Count 15.9 K/mm3 (4.8-10.8)
[2019-11-27 07:10] LABS: Anion Gap 8.6 mEq/L (5-15)
[2019-11-27 07:11] LABS: Calcium 8.8 mg/dl (8.4-10.2)
--- NOTE | 2019-11-27 08:03 | Progress Note ---
Internal Medicine - PN: Subj *Date: 11/27/19 *Time: 08:17 Interval history: She feels better this morning. No diarrhea or vomiting during the night. She has persisted with abdominal cramping. Exam Vital signs and Labs for Last 24 Hours: Temp Pulse Resp BP Pulse Ox 98.9 F 89 18 113/71 95 11/27/19 07:39 11/27/19 07:39 11/27/19 07:39 11/27/19 07:39 11/27/19 07:39 Laboratory Results - last 24 hr 11/26/19 07:54: Stl Aeromonas (PCR) Not detected, Stl C. cayetanensis PCR Not detected, Stool Rotavirus (PCR) Not detected, Stl Adenov F 40/41 PCR Not detected, Stool Astrovirus (PCR) Not detected, Stool Campylobacter PCR Not detected, Stl C.difficile Tox PCR Not detected, Stool Cryptosporidium PCR Not detected, Stl E.coli Shiga Tox PCR Not detected, Stool E coli O157 PCR Not detected, Stl Enterotoxigenic E PCR Not detected, Stool EPEC (PCR) Not detected, Stool EAEC (PCR) Not detected, Stl E. histolytica PCR Not detected, Stool Giardia Lamblia PCR Not detected, Stool Salmonella PCR Not detected, Stool Sapovirus (PCR) Not detected, Stl P. shigelloides PCR Not detected, Stl Shigella/EIEC PCR Not detected, St Y.enterocolitica PCR Not detected, Stool Vibrio (PCR) Not detected, Stl Vibrio cholerae PCR Not detected, Stl Norovirus GI/GII PCR Not detected 11/27/19 06:50: WBC 15.9 H, RBC 4.26, Hgb 12.6, Hct 39.1, MCV 91.8, MCH 29.5, MCHC 32.1, RDW 13.3, Plt Count 279, MPV 7.7, Neut % (Auto) 83.1 H, Lymph % (Auto) 11.6, [place] % (Auto) 5.0, Eos % (Auto) 0.2, Baso % (Auto) 0.2, Neut # (Auto) 13.2 H, Lymph # (Auto) 1.8, [place] # (Auto) 0.8, Eos # (Auto) 0.0, Baso # (Auto) 0.0 11/27/19 06:50: Sodium 141, Potassium 3.6, Chloride 110 H, Carbon Dioxide 26, Anion Gap 8.6, BUN 15 D, Creatinine 1.20 H, Estimated Creat Clear 45, Estimated GFR 46 L, Est GFR ( Amer) 56 L, Glucose 102 H, Calcium 8.8 D I & O for Last 24 hours: Intake & Output 11/24/19 11/25/19 11/26/19 11/27/19 11:59 11:59 11:59 11:59 Intake Total 100 / 100 1575 / 1575 Balance 100 / 100 1575 / 1575 Weight 121 lb 6 oz 121 lb 2 oz Narrative: She appears in no acute distress. Lungs are clear to auscultation. Abdomen is thin, soft, nondistended. Mild diffuse low abdominal tenderness. No rebound or guarding. Assessment and Plan (1) Colitis Current visit: Yes Status: Acute Category: Medical Code(s): K52.9 - Nonin fective gastroenteritis and colitis, unspecified (2) Dehydration Current visit: Yes Status: Acute Category: Medical Code(s): E86.0 - Dehydration (3) Leukocytosis Current visit: Yes Status: Acute Category: Medical Code(s): D72.829 - Elevated white blood cell count, unspecified (4) SIRS (systemic inflammatory response syndrome) Current visit: Yes Status: Acute Category: Medical Code(s): R65.10 - Systemic inflammatory response syndrome (SIRS) of non-infectious origin without acute organ dysfunction - Assessment and plan all Dx Assessment and Plan for all problems:: Continue antibiotics and fluids. We will attempt to advance her diet today.
[2019-11-27 08:22] LABS: Lymphocytes % 12 % (10-50); Monocytes % 7 % (2-9); Neutrophils % 81 % (42-76); RBC Morphology Normal; Total Cells Counted 100
[2019-11-28 05:55] LABS: Basophils % 0.2 % (0.1-2.0); Eosinophils # 0.1 K/mm3 (0.0-0.4); Eosinophils % 0.6 % (0.1-12.0); Hematocrit 36.5 % (37.0-47.0); Hemoglobin 11.8 g/dL (12.2-16.2); Lymphocytes # 1.7 K/mm3 (0.7-4.5); Lymphocytes % 11.4 % (10-50); Mean Corpuscular HGB Conc 32.4 g/dL (31.8-35.4); Mean Corpuscular Volume 93.4 fl (81-99); Mean Platelet Volume 7.5 fl (7.4-10.4); Monocytes # 0.7 K/mm3 (0.1-1.0); Monocytes % 4.8 % (1.7-9.3); Neutrophils # 12.2 K/mm3 (1.8-7.8); Neutrophils % 82.9 % (37.0-80.0); Platelet Count 256 K/mm3 (142-424); Red Blood Count 3.91 M/mm3 (4.20-5.40); Red Cell Distribution Width 13.4 % (11.5-17.5); White Blood Count 14.7 K/mm3 (4.8-10.8)
[2019-11-28 06:09] LABS: Anion Gap 6.6 mEq/L (5-15); Calcium 8.8 mg/dl (8.4-10.2)
--- NOTE | 2019-11-28 09:05 | Progress Note ---
Internal Medicine - PN: Subj *Date: 11/28/19 *Time: 09:04 Interval history: Tried advancing diet yesterday and had increased abdominal cramping with diarrhea. No vomiting. No blood in the stool. Exam Vital signs and Labs for Last 24 Hours: Temp Pulse Resp BP Pulse Ox 98.2 F 82 20 114/59 L 96 11/28/19 08:00 11/28/19 08:00 11/28/19 08:00 11/28/19 08:00 11/28/19 08:00 Laboratory Results - last 24 hr 11/28/19 05:25: WBC 14.7 H, RBC 3.91 L, Hgb 11.8 L, Hct 36.5 L, MCV 93.4, MCH 30.3, MCHC 32.4, RDW 13.4, Plt Count 256, MPV 7.5, Neut % (Auto) 82.9 H, Lymph % (Auto) 11.4, [place] % (Auto) 4.8, Eos % (Auto) 0.6, Baso % (Auto) 0.2, Neut # (Auto) 12.2 H, Lymph # (Auto) 1.7, [place] # (Auto) 0.7, Eos # (Auto) 0.1, Baso # (Auto) 0.0 11/28/19 05:25: Sodium 140, Potassium 3.6, Chloride 109 H, Carbon Dioxide 28, Anion Gap 6.6, BUN 10 D, Creatinine 0.90 D, Estimated Creat Clear 62, Estimated GFR 65, Est GFR ( Amer) 78 D, Glucose 92, Calcium 8.8 I & O for Last 24 hours: Intake & Output 11/25/19 11/26/19 11/27/19 11/28/19 11:59 11:59 11:59 11:59 Intake Total 100 / 100 1775 / 1775 5711 / 5711 Output Total 500 / 500 Balance 100 / 100 1775 / 1775 5211 / 5211 Weight 121 lb 6 oz 121 lb 2 oz 124 lb Microbiology Reports for the Last 24 Hours: Microbiology 11/26/19 06:20 Blood Blood Culture - Preliminary NO GROWTH AFTER 48 HOURS 11/26/19 06:20 Blood Blood Culture - Preliminary NO GROWTH AFTER 48 HOURS Narrative: No distress. Chest with coarse breath sounds. Abdomen thin, soft, nondistended. No tenderness. Assessment and Plan (1) Colitis Current visit: Yes Status: Acute Category: Medical Code(s): K52.9 - Noninfective gastroenteritis and colitis, unspecified (2) Dehydration Current visit: Yes Status: Acute Category: Medical Code(s): E86.0 - Dehydration (3) Leukocytosis Current visit: Yes Status: Acute Category: Medical Code(s): D72.829 - Elevated white blood cell count, unspecified (4) SIRS (systemic inflammatory response syndrome) Current visit: Yes Status: Acute Category: Medical Code(s): R65.10 - Systemic inflammatory response syndrome (SIRS) of non-infectious origin without acute organ dysfunction (5) COPD (chronic obstructive pulmonary disease) Current visit: Yes Status: Acute Category: Medical Code(s): J44.9 - Chronic obstructive pulmonary disease, unspecified (6) Tobacco abuse disorder Current visit: Yes Status: Acute Category: Medical Code(s): Z72.0 - Tobacco use (7) ASCVD (arteriosclerotic cardiovascular disease) Current visit: Yes Status: Acute Category: Medical Code(s): I25.10 - Atherosclerotic heart disease of [place] coronary artery without angina pectoris (8) Anxiety disorder Current visit: Yes Status: Acute Category: Medical Code(s): F41.9 - Anxiety disorder, unspecified - Assessment and plan all Dx Assessment and Plan for all problems:: Clinically improving. Labs are better. Will back off to bland diet. Will make n.p.o. after midnight tonight and consideration of GI consult tomorrow if her symptoms are not better.
--- NOTE | 2019-11-29 07:49 | Progress Note ---
Internal Medicine - PN: Subj *Date: 11/29/19 *Time: 07:49 Exam Vital signs and Labs for Last 24 Hours: Temp Pulse Resp BP Pulse Ox 98.5 F 74 18 118/64 95 11/29/19 04:17 11/29/19 04:17 11/29/19 04:17 11/29/19 04:17 11/29/19 04:17 I & O for Last 24 hours: Intake & Output 11/26/19 11/27/19 11/28/19 11/29/19 23:59 23:59 23:59 23:59 Intake Total 1675 / 1675 4356 / 4356 2705 / 2705 Output Total 500 / 500 800 / 1050 250 / 250 Balance 1675 / 1675 3856 / 3856 1905 / 1655 -250 / -250 Weight 55.055 kg 54.941 kg 56.245 kg 55.877 kg Microbiology Reports for the Last 24 Hours: Microbiology 11/26/19 06:20 Blood Blood Culture - Preliminary NO GROWTH AFTER 48 HOURS 11/26/19 06:20 Blood Blood Culture - Preliminary NO GROWTH AFTER 48 HOURS Assessment and Plan (1) Colitis Current visit: Yes Status: Acute Category: Medical Code(s): K52.9 - Noninfective gastroenteritis and colitis, unspecified (2) Dehydration Current visit: Yes Status: Acute Category: Medical Code(s): E86.0 - Dehydration (3) Leukocytosis Current visit: Yes Status: Acute Category: Medical Code(s): D72.829 - Elevated white blood cell count, unspecified (4) SIRS (systemic inflammatory response syndrome) Current visit: Yes Status: Acute Category: Medical Code(s): R65.10 - Systemic inflammatory response syndrome (SIRS) of non-infectious origin without acute organ dysfunction (5) COPD (chronic obstructive pulmonary disease) Current visit: Yes Status: Acute Category: Medical Code(s): J44.9 - Chronic obstructive pulmonary disease, unspecified (6) Tobacco abuse disorder Current visit: Yes Status: Acute Category: Medical Code(s): Z72.0 - Tobacco use (7) ASCVD (arteriosclerotic cardiovascular disease) Current visit: Yes Status: Acute Category: Medical Code(s): I25.10 - Atherosclerotic heart disease of [place] coronary artery without angina pectoris (8) Anxiety disorder Current visit: Yes Status: Acute Category: Medical Code(s): F41.9 - Anxiety disorder, unspecified The patient's infection will respond to the chosen ABx?: Yes Is the patient receiving the right drug, dose, and route?: Yes Could a more targeted ABx be ordered?: No
--- NOTE | 2019-11-29 08:41 | Progress Note ---
<Diann Aponte - Last Filed: 11/29/19 08:42> Internal Medicine - PN: Subj *Date: 11/29/19 *Time: 08:42 Interval history: Feeling better today. Did not have any nausea, vomiting, diarrhea, or abdominal cramping during the night. She had Jell-O and crackers for dinner last night. She tolerated this well. She did sleep. She is breathing without difficulty. She would like to go home. Exam Vital signs and Labs for Last 24 Hours: Temp Pulse Resp BP Pulse Ox 98.5 F 74 18 118/64 95 11/29/19 04:17 11/29/19 04:17 11/29/19 04:17 11/29/19 04:17 11/29/19 04:17 I & O for Last 24 hours: Intake & Output 11/26/19 11/27/19 11/28/19 11/29/19 11:59 11:59 11:59 11:59 Intake Total 100 / 100 1775 / 1775 5911 / 5911 1150 / 1150 Output Total 500 / 500 1050 / 1050 Balance 100 / 100 1775 / 1775 5411 / 5411 100 / 100 Weight 121 lb 6 oz 121 lb 2 oz 124 lb 123 lb 3 oz Microbiology Reports for the Last 24 Hours: Microbiology 11/26/19 06:20 Blood Blood Culture - Preliminary NO GROWTH AFTER 48 HOURS 11/26/19 06:20 Blood Blood Culture - Preliminary NO GROWTH AFTER 48 HOURS - Constitutional no acute distress - *Routine Respiratory Exam Present: CTA bilaterally (Anteriorly and posteriorly) - *Routine Cardiovascular Exam Present: RRR - *Routine Abdominal Exam Present: soft, normoactive bowel sounds. Absent: tenderness, distended - *Routine Extremities Exam Absent: edema, calf tenderness - *Routine Neurological Exam Present: alert, oriented X3 Assessment and Plan (1) Colitis Status: Acute Category: Medical Code(s): K52.9 - Noninfective gastroenteritis and colitis, unspecified (2) Dehydration Status: Acute Category: Medical Code(s): E86.0 - Dehydration (3) Leukocytosis Status: Acute Category: Medical Code(s): D72.829 - Elevated white blood cell count, unspecified (4) SIRS (systemic inflammatory response syndrome) Status: Acute Category: Medical Code(s): R65.10 - Systemic inflammatory response syndrome (SIRS) of non-infectious origin without acute organ dysfunction (5) COPD (chronic obstructive pulmonary disease) Status: Acute Category: Medical Code(s): J44.9 - Chronic obstructive pulmonary disease, unspecified (6) Tobacco abuse disorder Status: Acute Category: Medical Code(s): Z72.0 - Tobacco use (7) ASCVD (arteriosclerotic cardiovascular disease) Status: Acute Category: Medical Code(s): I25.10 - Atherosclerotic heart disease of [place] coronary artery without angina pectoris (8) Anxiety disorder Status: Acute Category: Medical Code(s): F41.9 - Anxiety disorder, unspecified - Assessment and plan all Dx Assessment and Plan for all problems:: Patient will be discharged home on Levaquin and Flagyl. Follow-up with Dr. Brower in a week. <Ang Brower - Last Filed: 11/29/19 12:10> Internal Medicine - PN: Subj *Date: 11/29/19 *Time: 12:09 Exam Vital signs and Labs for Last 24 Hours: Temp Pulse Resp BP Pulse Ox 97.9 F 69 16 122/74 98 11/29/19 08:00 11/29/19 08:00 11/29/19 08:00 11/29/19 08:00 11/29/19 08:00 I & O for Last 24 hours: Intake & Output 11/27/19 11/28/19 11/29/19 11/30/19 11:59 11:59 11:59 11:59 Intake Total 1775 / 1775 5911 / 5911 1150 / 1150 Output Total 500 / 500 1050 / 1050 Balance 1775 / 1775 5411 / 5411 100 / 100 Weight 121 lb 2 oz 124 lb 123 lb 3 oz Assessment and Plan (1) Colitis Status: Acute Category: Medical Code(s): K52.9 - Noninfective gastroenteritis and colitis, unspecified (2) Dehydration Status: Acute Category: Medical Code(s): E86.0 - Dehydration (3) Leukocytosis Status: Acute Category: Medical Code(s): D72.829 - Elevated white blood cell count, unspecified (4) SIRS (systemic inflammatory response syndrome) Status: Acute Category: Medical Code(s): R65.10 - Systemic inflammatory response syndrome (SIRS) of non-infectious origin without acute organ dysfunction (5) COPD (chronic obstructive pulmonary disease) Status: Acute Category: Medical Code(s): J44.9 - Chronic obstructive pulmonary disease, unspecified (6) Tobacco abuse disorder Status: Acute Category: Medical Code(s): Z72.0 - Tobacco use (7) ASCVD (arteriosclerotic cardiovascular disease) Status: Acute Category: Medical Code(s): I25.10 - Atherosclerotic heart disease of [place] coronary artery without angina pectoris (8) Anxiety disorder Status: Acute Category: Medical Code(s): F41.9 - Anxiety disorder, unspecified - Assessment and plan all Dx Assessment and Plan for all problems:: She did better yesterday with a bland diet. Stools are less frequent but still loose. Abdominal pain is much improved. She is stable for discharge.
--- NOTE | 2019-11-29 14:11 | Discharge Summary ---
General - General Admission date:: 11/26/19 <Ang Brower - 12/11/19 08:52> 11/26/19 <Romy Huffman - 11/29/19 14:11> Discharge date: 11/29/19 <Romy Huffman - 11/29/19 14:11> HPI HPI: Ms. Kirkland is a 54-year-old female with a history of asthma, COPD, hyperlipidemia, and arthritis who began having abdominal cramping in the lower abdomen, diarrhea, and vomiting last night around 10 PM. She states this continued all throughout the night and around 4 AM, she began noticing blood in her stool. She presented to the emergency room for further evaluation and treatment. A diarrhea panel was done and was negative, but her CT showed colitis and her white blood cell count was elevated. She was admitted and started on IV antibiotics. She states she has had no vomiting or diarrhea since she arrived on the second floor. She continues with abdominal cramping. <Romy Huffman - 11/29/19 14:11> Hospital Course Hospital Course: The patient was started on Flagyl and Levaquin as well as pain control, antiemetics, and IV fluids. Her nausea and vomiting subsided but she continued with lower abdominal cramping. Her PCR diarrhea panel was negative. She remained on bowel rest for the first day and then her diet was advanced. She had increased abdominal cramping and diarrhea with the advancement in the diet. She had no further blood in her stool. By 11/29/2019, she was feeling better. She had no further nausea, vomiting, diarrhea, or abdominal cramping. She tolerated some Jell-O and crackers for dinner and wanted to go home. She was stable to be discharged home on Levaquin and Flagyl and will follow-up with Dr. Brower in a week. <Romy Huffman - 11/29/19 14:11> Objective Vital signs: Temp Pulse Resp BP Pulse Ox 97.9 F 69 16 122/74 98 11/29/19 08:00 11/29/19 08:00 11/29/19 08:00 11/29/19 08:00 11/29/19 08:00 <Ang Brower - 12/11/19 08:52> Temp Pulse Resp BP Pulse Ox 97.9 F 69 16 122/74 98 11/29/19 08:00 11/29/19 08:00 11/29/19 08:00 11/29/19 08:00 11/29/19 08:00 <Romy Huffman - 11/29/19 14:11> Narrative: - Constitutional no acute distress - *Routine Respiratory Exam Present: CTA bilaterally (Anteriorly and posteriorly) - *Routine Cardiovascular Exam Present: RRR - *Routine Abdominal Exam Present: soft, normoactive bowel sounds. Absent: tenderness, distended - *Routine Extremities Exam Absent: edema, calf tenderness - *Routine Neurological Exam Present: alert, oriented X3 <Romy Huffman - 11/29/19 14:11> Results Labs on day of discharge: Preliminary micro results at discharge 11/26/19 06:20 Blood Culture - Preliminary Blood NO GROWTH AFTER 48 HOURS 11/26/19 06:20 Blood Culture - Preliminary Blood NO GROWTH AFTER 48 HOURS <Romy Huffman 11/29/19 14:11> DS: Diagnosis - Discharge Diagnosis (1) Colitis Status: Acute (2) Dehydration Status: Acute (3) Leukocytosis Status: Acute (4) SIRS (systemic inflammatory response syndrome) Status: Acute (5) COPD (chronic obstructive pulmonary disease) Status: Acute (6) Tobacco abuse disorder Status: Acute (7) ASCVD (arteriosclerotic cardiovascular disease) Status: Acute (8) Anxiety disorder Status: Acute <Romy Huffman - 11/29/19 14:08> (1) Colitis Status: Acute (2) Dehydration Status: Acute (3) Leukocytosis Status: Acute (4) SIRS (systemic inflammatory response syndrome) Status: Acute (5) COPD (chronic obstructive pulmonary disease) Status: Acute (6) Tobacco abuse disorder Status: Acute (7) ASCVD (arteriosclerotic cardiovascular disease) Status: Acute (8) Anxiety disorder Status: Acute <Ang Brower - 12/11/19 08:52> Discharge Plan - Patient Discharge Instructions ACTIVITY: Continue current activity <Romy Huffman - 11/29/19 14:11> DIET: advance to your usual diet <Romy Huffman 11/29/19 14:11> Patient Instructions: DI for Colitis <Ang Brower - 12/11/19 08:52> Forms: <Ang Brower - 12/11/19 08:52> - Follow up Plan Follow up with: Ang Brower MD [Primary Care Provider] - 12/06/19 10:00 am (in [facility]) <Ang Brower - 12/11/19 08:52> Disposition: Home, Self-Care <Ang Brower - 12/11/19 08:52> Home Medications: Home Medications Medication Instructions Recorded Confirmed Type Aspirin [Aspirin 81mg chewable 81 mg PO DAILY 10/15/17 11/26/19 History tab] Atorvastatin Calcium [Atorvastatin 40 mg PO HS 10/15/17 11/26/19 History 40mg Tab] Budesonide/Formoterol Fumarate 1 inh INHALATION BID 10/15/17 11/26/19 History [Symbicort 160-4.5 Mcg Inhaler] Clopidogrel Bisulfate [Plavix 75mg 75 mg PO DAILY 10/15/17 11/26/19 History Tab] Metoprolol Succinate [Toprol XL 25 mg PO DAILY 10/15/17 11/26/19 History 25mg tablet] Nitroglycerin [Nitroglycerin 1 spr TRANSLINGUAL Q5MINP PRN 10/15/17 11/26/19 History 0.4mg/Dose [place] 4.9gm] Amitriptyline HCl [Elavil 25mg 25 - 50 mg PO HS 07/14/19 11/26/19 History tablet] ALPRAZolam [Xanax 0.5mg tab] 0.5 mg PO TIDP PRN 11/26/19 11/26/19 History Albuterol Sulfate [Albuterol HFA 2 puffs IH Q6H 11/26/19 11/26/19 History Inhaler] Isosorbide Mononitrate [Imdur 30mg 30 mg PO DAILY 11/26/19 11/26/19 History ER tablet] levoFLOXacin [Levaquin 500mg 500 mg PO DAILY #7 tab 11/29/19 Rx tab] metroNIDAZOLE [Flagyl 500mg 500 mg PO TID #21 tab 11/29/19 Rx Tablet] <Ang Brower - 12/11/19 08:52> Prescriptions/Medication Reconciliation: New levoFLOXacin [Levaquin 500mg tab] 500 mg PO DAILY #7 tab metroNIDAZOLE [Flagyl 500mg Tablet] 500 mg PO TID #21 tab Continued Clopidogrel Bisulfate [Plavix 75mg Tab] 75 mg PO DAILY Atorvastatin Calcium [Atorvastatin 40mg Tab] 40 mg PO HS Aspirin [Aspirin 81mg chewable tab] 81 mg PO DAILY Nitroglycerin [Nitroglycerin 0.4mg/Dose [place] 4.9gm] 1 spr TRANSLINGUAL Q5MINP PRN PRN Reason: Chest Pain Budesonide/Formoterol Fumarate [Symbicort 160-4.5 Mcg Inhaler] 1 inh INHALATION BID Isosorbide Mononitrate [Imdur 30mg ER tablet] 30 mg PO DAILY Albuterol Sulfate [Albuterol HFA Inhaler] 2 puffs IH Q6H ALPRAZolam [Xanax 0.5mg tab] 0.5 mg PO TIDP PRN PRN Reason: Anxiety Metoprolol Succinate [Toprol XL 25mg tablet] 25 mg PO DAILY Amitriptyline HCl [Elavil 25mg tablet] 25 - 50 mg PO HS Discontinued Meloxicam 15 mg PO DAILY <Ang Brower - 12/11/19 08:52> - Problem Reconciliation Problems Reviewed?: Yes <Ang Brower - 12/11/19 08:52> Yes <Romy Huffman - 11/29/19 14:11> - Additional Information Additional Information: Concur with plan for discharge as outlined above. <Ang Brower - 12/11/19 08:52>
== END 2019-11-29 09:37 | disposition home or self-care (01) | DRG 392 ==
LOC: 2ND 06:16 → ER 06:16 → OBSVTOIN 09:37 → 2ND 09:37
PROVIDERS: ADMIT Family Medicine; ATTEND Family Medicine
CPT/HCPCS: 36415; 74177; 80048; 80076; 81001; 82009; 83605; 83690; 85007; 85025; 87040; 87275; 87276; 87506; 96365; 96367; 96375; 99285; G0378; J1956; J2405; Q9967

== ENCOUNTER → 2020-02-14 09:56 | Outpatient (CLI) | payer OTHER, SELFPAY ==
--- NOTE | 2020-02-14 10:07 | MM_ITS ---
PROCEDURE: MM DIG SCREENING MAMM BI W/CAD Digital Breast Tomosynthesis Included CLINICAL INDICATION: SCREENING Palpable abnormalities left breast COMPARISON: [facility] CT CHEST W/O CONTRAST from 05/27/2017 US BREAST LT COMPLETE from 02/14/2020 US BREAST RT COMPLETE from 02/14/2020 TECHNIQUE: Standard images performed along with problem solving views and bilateral breast ultrasound FINDINGS: There is average fibroglandular tissue. Right breast: There is asymmetry in the superior aspect of the right breast posteriorly. This measures approximately 10 mm. Right breast ultrasound: No discrete cystic or solid lesion. The asymmetric density is not confirmed on ultrasound. Left breast: There is diffuse calcification within all quadrants of the left breast. Much of the calcification is coarsened heterogeneous however, there is also amorphous and pleomorphic calcification. This is highly suspicious for malignancy. In addition, there is a 7 by 7 mm nodule in the upper outer left breast. The posterior margins are somewhat obscured. Left breast ultrasound: At 1 o'clock there is an 11 x 8 mm hypoechoic nodule. The margins are somewhat irregular and there may be some posterior acoustical shadowing. This is suspicious and biopsy is suggested. There is a 5 mm hypoechoic nodule in the subcutaneous region at 2 o'clock near the nipple also suspicious. At 3 o'clock near the nipple there is a 2 x 1 cm hypoechoic nodule with posterior acoustical shadowing. This nodule is heterogeneous in nature wider than tall suspicious and biopsy is suggested. 5 mm hypoechoic nodules present at 2 o'clock. There is a 3 mm cyst at 9 o'clock. A 17 mm node is present in the axilla.. IMPRESSION: Highly suspicious calcifications of the left breast with at least 4 suspicious nodules by ultrasound. Surgical consult and biopsy is suggested. Suspicious nodule upper outer right breast. Stereotactic biopsy suggested. The BI-RAD Category: 5 Highly Suggestive Of Malignancy FOLLOW-UP: BIO Biopsy Recommended (A letter has been sent to the patient regarding results of the study.) Dictated by: Rod Garcia MD 02/18/2020 08:39 Electronically signed by Rod Garcia MD in [place] 02/18/2020 08:39
== END ==
PROVIDERS: PCP Family Medicine; Visit Provider Nurse Practitioner
DX: N63.20 Unspecified lump in the left breast, unspecified quadrant (principal)
CPT/HCPCS: 76641; 77062; 77066; G0279

== ENCOUNTER → 2020-11-04 12:53 | Outpatient (CLI) | payer OTHER, SELFPAY ==
[2020-11-04 13:26] LABS: Basophils % 0.6 % (0.1-2.0); Eosinophils # 0.1 K/mm3 (0.0-0.4); Eosinophils % 2.2 % (0.1-12.0); Hematocrit 40.5 % (37.0-47.0); Hemoglobin 12.4 g/dL (12.2-16.2); Lymphocytes # 1.2 K/mm3 (0.7-4.5); Lymphocytes % 17.9 % (10-50); Mean Corpuscular HGB Conc 30.6 g/dL (31.8-35.4); Mean Corpuscular Hemoglobin 28.7 pg (27.0-31.2); Mean Corpuscular Volume 93.7 fl (81-99); Mean Platelet Volume 7.1 fl (7.4-10.4); Monocytes # 0.5 K/mm3 (0.1-1.0); Monocytes % 6.9 % (1.7-9.3); Neutrophils # 4.7 K/mm3 (1.8-7.8); Neutrophils % 72.4 % (37.0-80.0); Platelet Count 284 K/mm3 (142-424); Red Blood Count 4.32 M/mm3 (4.20-5.40); Red Cell Distribution Width 15.3 % (11.5-17.5); White Blood Count 6.5 K/mm3 (4.8-10.8)
== END ==
PROVIDERS: Visit Provider Family Medicine
DX: Z20.822 Contact with and (suspected) exposure to COVID-19 (principal)
CPT/HCPCS: 36415; 85025; U0003

== ENCOUNTER → 2022-03-25 12:38 | Outpatient (CLI) | payer OTHER, SELFPAY ==
--- NOTE | 2022-03-25 12:42 | XR_ITS ---
FINAL REPORT CLINICAL HISTORY: Pain in right knee FINDINGS: RIGHT KNEE Three views of the right knee reveal no evidence of fracture or dislocation. The bony alignment is normal. There is mild degenerative change. There is no evidence of joint effusion. No localized soft tissue abnormality is identified. IMPRESSION: Mild degenerative change with no acute abnormality identified. Reviewed, Interpreted and Dictated by Marcell He III, MD Transcribed by Kiersten Alvarez Authenticated and [facility]
== END ==
PROVIDERS: PCP Family Medicine; Visit Provider Family Medicine
DX: M25.561 Pain in right knee (principal)
CPT/HCPCS: 73562

== ENCOUNTER 2024-04-09 08:23 | Day surgery (SDC) | payer MEDICARE, MEDICAID, SELFPAY ==
[2024-04-09 08:42] VITALS: BMI 19.4
[2024-04-09 08:49] VITALS: BP 136/60; PULSE 110; RESP 18; TEMP 36.1; O2SAT 98
[2024-04-09] MEDS: LACTATED RINGERS 1000ML 1,000 ML 25 ML IV (08:59)
--- NOTE | 2024-04-09 09:08 | P.PCN_ITS ---
Procedure: Date: 04/09/24 Patient Date of :: 1965 Procedure Performed:: Total colonoscopy to terminal ileum with numerous polypectomy . Indications:: Patient is a 58-year-old female from [place] with history of COPD, atherosclerotic cardiovascular disease, tobacco abuse disorder, referred by Del Brower MD for colonoscopy. She has a family history of colon cancer in her mother and sibling. She has never had prior colonoscopy. She had a positive Cologuard about a year and a half ago. . Performing Provider:: Marcell Jackson MD Referring Provider:: Del Brower MD Sedation:: MAC sedation Procedure:: Patient history was obtained and appropriate physical examination was performed. Patient's medications and allergies were reviewed. Informed consent was obtained after explaining the benefits, alternatives, and risks of the procedure including, but not limited to, bleeding, perforation, missed lesions, and adverse reaction to anesthesia medications. Patient was transported to endoscopy procedure room. Patient was connected to monitoring devices. Throughout the procedure the patient's blood pressure, pulse, and oxygen saturations were monitored continuously. Patient identificat ion and planned procedure were verified by the staff. Patient was positioned in lateral decubitus position. Digital anorectal exam was performed. Variable stiffness Olympus colonoscope was inserted and advanced under direct visualization to the cecum. Adequacy of the colonic preparation was noted. The colonoscope was advanced a short distance into the terminal ileum. The colonoscope was then slowly withdrawn while carefully examining the color, texture, anatomy, and integrity of the mucosoa circumferentially. Colonoscope was then withdrawn. Impression: Colonoscope was ultimately advanced to the cecum with some abdominal pressure. There was some particulate stool mostly in the right colon which was cleared with irrigation and suctioning. In the ascending colon there was a moderate adenomatous appearing polyp removed with cold snare. Near the splenic flexure there was a moderate adenomatous polyp removed with cold snare. There is some minor oozing and hemoclips were deployed for good hemostasis. In the descending colon multiple polyps were encountered. A total of 5 polyps removed for which were removed with combination of using cold snare and biopsy forceps. In the si gmoid colon there were a couple of possible serrated adenoma polyps removed with cold snare. The rectosigmoid region there were various polyps some of which appeared to be serrated adenoma and some of which appeared to be hyperplastic. He these were sampled with biopsy forceps with 1 larger polyp removed with cold snare. Retroflexion was unable to be performed. There were numerous rectal and rectosigmoid appearing hyperplastic polyps. . Findings:: Multiple polyps as noted above. Total of 14 polyps removed. There were essentially too numerous to count however hyperplastic appearing rectosigmoid polyps Recommendations:: Pending the pathology likely repeat colonoscopy in 1 or 2 years. Complications:: None immediately apparent Estimated blood obtained (mL): 4 Colonoscopy Component Colonoscopy Component Was a colonoscopy performed during today's procedure?: Yes Recommended follow up colonoscopy of at least 10 years?: No If no, follow up colonoscopy recommended in ___ years?: - Reason for not recommending >/= 10 yr follow-up interval?: See above
--- NOTE | 2024-04-09 09:10 | EXP.ANES.CKL ---
[facility] Disclaimer: The information contained in this section may have been updated after the patient was seen, as this information can be updated by other users. Medical History Collapsed lung Port-A-Cath in place Hyperlipemia Anxiety Breast cancer Surgical History Hx laparoscopic cholecystectomy H/O mastectomy Family History Other Colon cancer Family history of hypertension Family history of stroke Social History (Updated 04/09/24 @ 08:39 by Lakesha Ewing RN) Smoking Status: Current every day smoker tobacco type: cigarettes packs per day: 1 second hand exposure: Yes alcohol intake: never substance use type: denies use current occupational status: employed Travel in the last 8 weeks: None household members: spouse housing: house current occupation: [employer] current occupational exposures/hazards: No caffeine: Yes [facility] Anesthesia Checklist Patient Identification Patient Identification: Arm Band Structural Data Admitted From: Home Planned Operative Procedure/s: Colonoscopy Consent for Planned Operative Procedure(s) Verified: Yes Verified Documents: Surgical Consent and History and Physical NPO Status Verified Time NPO: 00:00 Additional verifications Anesthesia Reactions: No Hx Blood Transfusions: No Blood Transfusion Reaction: No Airway Assessment Mallampati Score:: Class II C-Spine Mobility Assessed: Yes TMJ Mobility Assessed: Yes Dentition: Edentulous Neurological Assessment Level of Consciousness: Awake, Alert and Appropriate Anesthesia Plan Anesthesia Risk discussed: Yes Anesthesia Plan: Verified ASA Class: III Anesthesia Type: MAC
[2024-04-09 09:23] VITALS: O2SAT 97
[2024-04-09 10:20] VITALS: BP 110/67; PULSE 101; RESP 18; TEMP 36.3; O2SAT 98
[2024-04-09 10:30] VITALS: BP 98/54; PULSE 94; RESP 16; O2SAT 98
[2024-04-09 10:40] VITALS: BP 108/49; PULSE 71; RESP 16; O2SAT 100
[2024-04-09 10:50] VITALS: BP 130/47; PULSE 76; RESP 16; O2SAT 100
== END 2024-04-09 10:52 | disposition home or self-care (01) ==
PROVIDERS: PCP Family Medicine; Visit Provider Surgery
PROC: 0DJD8ZZ Inspection of Lower Intestinal Tract, Via Natural or Artificial Opening Endoscopic (ICD-10-PCS; CPT 45378; principal; 2024-04-09 09:30)
DX: Z12.11 Encounter for screening for malignant neoplasm of colon (principal); R19.5 Other fecal abnormalities; Z80.0 Family history of malignant neoplasm of digestive organs; F17.210 Nicotine dependence, cigarettes, uncomplicated; D12.7 Benign neoplasm of rectosigmoid junction; D12.2 Benign neoplasm of ascending colon; D12.4 Benign neoplasm of descending colon; D12.5 Benign neoplasm of sigmoid colon
CPT/HCPCS: 45380; 45385; 88305; J1642; J7120